=== PATIENT | female | born 1990 | race Caucasian/White ===

== ENCOUNTER 2018-09-13 05:07 | Inpatient (IN) | payer OTHER ==
[2018-09-05 11:31] VITALS: BMI 32.8
[~2018-09-13 05:07] MED LIST: MIDAZOLAM HCL 2 MG/2 ML SINGLE DOSE VIAL ONE; PROPOFOL 20 ML ONE; SUCCINYLCHOLINE CHLORIDE 200 MG/10 ML VIAL ONE; ceFAZolin SODIUM 1 GM VIAL ONE
[2018-09-13] MEDS ORDERED: BUPIVACAINE HCL/PF 0.5% (5MG/ML) 10 ML VIAL ONE (08:05)
[2018-09-13] MEDS ORDERED: ceFAZolin SODIUM 1 GM VIAL IVPB ONE ×2 (08:14→09:51)
--- NOTE | 2018-09-13 09:19 | HP ---
History & Physical Update - History History: No Change - Physical Physical: No Change - Assessment Assessment: No Change - Plan Plan: No Change
[2018-09-13] MEDS ORDERED: DESFLURANE GAS 240 ML BOTTLE IH ONE (09:21)
[2018-09-13] MEDS ORDERED: ACETAMINOPHEN INJECTION 100 ML IVPB ONE (09:22)
[2018-09-13] MEDS ORDERED: ROCURONIUM BROMIDE 50 MG/5 ML VIAL ONE ×2 (09:30→11:03)
[2018-09-13] MEDS ORDERED: DEXAMETHASONE SOD PHOSPHATE 4 MG/1 ML VIAL ONE (09:30)
[2018-09-13] MEDS ORDERED: ceFAZolin SODIUM 1 GM VIAL ONE ×2 (09:30→17:58)
[2018-09-13] MEDS ORDERED: NEOSTIGMINE METHYLSULFATE 0.5 MG/ML - 10 ML MDV ONE (09:30)
[2018-09-13] MEDS ORDERED: fentaNYL CITRATE 250 MCG/5 ML VIAL ONE (09:30)
[2018-09-13] MEDS ORDERED: MIDAZOLAM HCL 2 MG/2 ML SINGLE DOSE VIAL ONE ×2 (09:30)
[2018-09-13] MEDS ORDERED: GLYCOPYRROLATE 0.2 MG/1 ML VIAL ONE ×2 (09:30→11:57)
[2018-09-13] MEDS ORDERED: SUCCINYLCHOLINE CHLORIDE 200 MG/10 ML VIAL ONE (09:30)
[2018-09-13] MEDS ORDERED: PROPOFOL 20 ML ONE (09:32)
[2018-09-13] MEDS ORDERED: BUPIVACAINE HCL/PF 0.5% (5MG/ML) 10 ML VIAL IJ ONE ×2 (09:51→12:01)
[2018-09-13] MEDS ORDERED: IBUPROFEN 800 MG/8 ML IJ IVPB PRN ×2 (12:21→12:22)
[2018-09-13] MEDS ORDERED: oxyCODONE HCL 5 MG TABLET PO PRN (12:22)
[2018-09-13] MEDS ORDERED: MEPERIDINE HCL CARPU-JECT 50 MG/1 ML DISP.SYRIN IM PRN (12:25)
[2018-09-13] MEDS ORDERED: LACTATED RINGERS SOLUTION 1,000 ML/1,000 ML INFUS.BAG IV SCH (12:30)
--- NOTE | 2018-09-13 12:39 | OP ---
Operative Note - Note: Operative Date: 09/13/18 Pre-Operative Diagnosis: Right ovarian cyst Operation: Roboic Laparosocpic right ovarian cystectomy. 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
[2018-09-13] MEDS ORDERED: ONDANSETRON 4 MG/2 ML VIAL IVPUSH PRN ×2 (13:21)
[2018-09-13] MEDS ORDERED: PROMETHAZINE HCL 25 MG/1 ML VIAL IVPB PRN (13:21)
[2018-09-13] MEDS ORDERED: PROMETHAZINE HCL 25 MG/1 ML VIAL IVPUSH PRN (13:21)
[2018-09-13] MEDS ORDERED: LACTATED RINGERS SOLUTION 1,000 ML IV SCH (13:30)
[2018-09-13] MEDS ORDERED: HYDROmorphone *PCA* 10MG/50ML DISP.SYRIN PCA SCH (13:30)
--- NOTE | 2018-09-13 13:40 | OP ---
DATE OF OPERATION: 09/13/2018 PREOPERATIVE DIAGNOSES: Right ovarian cyst and pelvic pain. OPERATION: Robotic, laparoscopic right ovarian cystectomy and mini laparotomy. POSTOPERATIVE DIAGNOSES: Right neoplasia of the ovary. FINDINGS: A right 6-cm ovarian cyst. Frozen section done reported neoplasia with no high-grade cells. ANESTHESIA: General. ANESTHESIOLOGIST: Marshall Desai MD ESTIMATED BLOOD LOSS: 100 mL DESCRIPTION OF PROCEDURE: Patient was taken to the operating room, placed in dorsal lithotomy position, prepped and draped in usual sterile fashion. Timeout was performed in accordance with hospital regulation. Gibson catheter was inserted into the bladder. Attention was then drawn to the umbilicus where an 8-mm umbilical incision was made. Veress needle was inserted into the cavity. Approximately 3-4 L of CO2 was insufflated into the cavity. Veress needle was then removed, and an 8-mm trocar was then inserted. Laparoscope and camera attached. Visualization revealed a 6- to 7-cm right ovarian cyst. Trocars were placed. Two trocars were placed on the left, one in the upper abdomen and one parallel to the umbilical incision, an 8-mm incision parallel and then 5 mm in the upper abdomen. Trocars were inserted under direct visualization. Two trocars were also placed on the right under direct visualization parallel to the umbilical incision, 8 mm apart. Trocars were inserted without difficulty. AirSeal cannula was then activated, and steep Trendelenburg was then done. The da Memo robot was then side docked. Trocars were then inserted onto the da Memo robot. Instruments were then inserted. The [place] was inserted on the left, and a bipolar and EndoShears were inserted on the right side. Visualization of the left ovary was normal, and the right ovary was noted to have a 6- to 7-cm ovarian cyst. Cautery of the cyst wall was then done, and the ovarian capsule was then peeled back to visualize a more-solid ovarian tumor, noting that the tumor appeared to be not an endometrioma. An Endobag was then inserted in a 12-mm port in the upper abdomen. The ovary was then placed into the bag, and the cyst was then shelled out into the bag without spillage into the cavity. Cauterization of the ovarian was done for hemostasis, and the tumor was then removed in the bag, approximately 6-7 cm. Frozen section was sent off, and frozen section diagnosis reported an ovarian neoplasia with no high-grade cells. A mini laparotomy was then done due to the size of the neoplasia and inability to remove through 12mm port. A mini laparotomy was performed. Pfannenstiel skin incision was made. Cautery was then used to go through layers of abdominal wall to the level of the fascia. Fascia was cut in the midline. Cautery was then used to open the fascia in the following fashion. Muscles split in the midline and peritoneal cavity was then entered and the Endobag was then removed through the mini laparotomy incision. Irrigation of the abdomen was done. Hemostasis of the ovary was noted, and the peritoneum was then closed with continuous 0 Vicryl suture. Fascia was then closed in continuous 0 Vicryl suture in 2 parts. Subcutaneous was closed using interrupted sutures using 0 Vicryl suture, and skin was then closed using 3-0 Vicryl in subcuticular fashion. All trocars were then removed after da Memo had been undocked and placed away from the patient's bedside. All incisions were then closed using 3-0 Vicryl suture in subcuticular fashion. Wound was washed and dressed. Steri- Strips were placed. Marcaine was infiltrated into the incisions. Wound was washed and dressed. Patient had tolerated the procedure well, was taken to recovery room in stable condition. Nishi [id number] MTDD
[2018-09-13] MEDS ORDERED: DEXTROSE 5%-WATER - 50 ML IVPB ONE (17:58)
[2018-09-13] MEDS: CEFAZOLIN 1 GM in DEXTROSE 5%-WATER - 50 ML IVPB SCH (18:09)
[2018-09-13] MEDS: ACETAMINOPHEN 325 MG TABLET (FP) PO SCH ×2 (18:10→21:46)
[2018-09-13] MEDS ORDERED: HEPARIN NA (PORCINE) 5,000 UNITS/ML 1ML VIAL SQ SCH (22:00)
[2018-09-14] MEDS ORDERED: ceFAZolin SODIUM 1 GM VIAL ONE ×2 (01:31→09:59)
[2018-09-14] MEDS ORDERED: DEXTROSE 5%-WATER - 50 ML IVPB ONE ×2 (01:31→09:59)
[2018-09-14] MEDS: ACETAMINOPHEN 325 MG TABLET (FP) PO SCH ×4 (01:36→23:08)
[2018-09-14] MEDS: CEFAZOLIN 1 GM in DEXTROSE 5%-WATER - 50 ML IVPB SCH ×2 (01:36→10:03)
--- NOTE | 2018-09-14 02:12 | SURG ---
Surgery Delivery Truck Driver Note Delivery Truck Driver: Crystal Isbell PA-C Date of Service: 09/13/18 Diagnosis: Right ovarian cyst Procedure: Roboic Laparosocpic right ovarian cystectomy. Mini laparotomy I was present for the entirety of the operative procedure. For further detail, please refer to operative report. Visit type - Case Type Case Type: Scheduled - Emergency Emergency Visit: No - New patient This patient is new to me today: Yes Date on this admission: 09/13/18
[2018-09-14] MEDS ORDERED: oxyCODONE HCL 5 MG TABLET PO PRN ×3 (08:00→08:16)
[2018-09-14] MEDS ORDERED: PCA PUMP KEY 1 EACH EACH ONE (08:33)
[2018-09-14 09:06] LABS: BASO % 0.2 % (0-2.0); EOS % 0.4 % (0-4.5); HEMATOCRIT 34.8 % (32.4-45.2); HEMOGLOBIN 11.6 GM/dL (10.7-15.3); LYMPH % 28.2 % (8-40); MCH 30.2 pg (25.7-33.7); MCHC 33.3 g/dl (32.0-36.0); MEAN CELL VOLUME 90.7 fl (80-96); MONO % 8.3 % (3.8-10.2); NEUT % 62.9 % (42.8-82.8); PLATELET COUNT 203 K/MM3 (134-434); RBC 3.83 M/mm3 (3.60-5.2); RDW 13.6 % (11.6-15.6); WHITE BLOOD COUNT 9.3 K/mm3 (4.0-10.0)
[2018-09-14 09:08] LABS: ANION GAP 7 MMOL/L (8-16); BLOOD UREA NITROGEN 10 mg/dL (7-18); CALCIUM 8.5 mg/dL (8.5-10.1); CHLORIDE 104 mmol/L (98-107); CO2 27 mmol/L (21-32); CREATININE 0.7 mg/dL (0.55-1.3); GLUCOSE,RANDOM 78 mg/dL (74-106); POTASSIUM 3.8 mmol/L (3.5-5.1); SODIUM 138 mmol/L (136-145)
--- NOTE | 2018-09-14 09:49 | PN ---
Progress Note (short form) - Note Progress Note: POD#1 Pt states that she has been drinking water without any nausea or emesis. Pain flucutaing overnight. No flatus. Vital Signs Period Temp Pulse Resp BP Sys/Szymanski Pulse Ox Last 24 Hr 98.2 F-98.4 F 50-86 14-20 95-121/48-73 98-100 redman cath- 2200ml clear/yellow urine GEN: A&0x3, appears comfortable Cv: RRR Lungs: CTA b/l ABD: soft, non-distended, non-tender. Inc c/d/i LE: No calf tenderness or swelling noted. SCDs in place CBC, BMP /02/18 07:30 11//18 07:30 A/P; 28 yo female s/p robotic right ovarian cystectomy with mini laparotomy for mass removal Pt doing well surgically, had celars without difficulty. 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 Stephens
[2018-09-14] MEDS: ENOXAPARIN NA (PORCINE) 40 MG/0.4 ML DISP.SYRIN SQ SCH (10:03)
--- NOTE | 2018-09-14 10:43 | PN ---
Progress Note (short form) - Note Progress Note: Anesthesia postop note, POD#1 S/P robotic converted to open , ovarian cystectomy, under GETA. MANAGER CHINESE post op. Pat seen and examined. Comfortable, sitting in the chair. Tolerating po. VSS. Pain 3-4/10. No apparent post anesthesia complications, D/C MANAGER CHINESE. Signed off.
[2018-09-14] MEDS: oxyCODONE HCL 5 MG TABLET PO PRN (16:47)
[2018-09-14 23:13] VITALS: TEMP 98.6
[2018-09-15] MEDS: oxyCODONE HCL 5 MG TABLET PO PRN ×2 (02:45→11:14)
[2018-09-15] MEDS: ACETAMINOPHEN 325 MG TABLET (FP) PO SCH (06:46)
--- NOTE | 2018-09-15 08:21 | PN ---
Post Progress Note - Subjective Subjective: 28 yo status post seen and evaluated, doing well. Post Day: 2 Vital Signs: Vital Signs Temperature 98.6 F 09/14/18 22:00 Pulse Rate 54 L 09/14/18 22:00 Respiratory Rate 20 09/14/18 22:00 Blood Pressure 114/59 L 09/14/18 22:00 O2 Sat by Pulse Oximetry (%) 99 09/14/18 07:30 Breast Exam: Yes: Soft Uterus: Yes: Fundus Firm Incision: Yes: Dressing dry and intact Abdomen/GI: Yes: Abdomen soft, Tolerating PO Lochia: Yes: Rubra Lochia, amount: Small Extremities: Yes: Calves non-tender Activity: Ambulating - Labs Labs: CBC WBC 9.3 K/mm3 (4.0-10.0) 09/14/18 07:30 RBC 3.83 M/mm3 (3.60-5.2) 09/14/18 07:30 Hgb 11.6 GM/dL (10.7-15.3) 09/14/18 07:30 Hct 34.8 % (32.4-45.2) 09/14/18 07:30 MCV 90.7 fl (80-96) 09/14/18 07:30 MCH 30.2 pg (25.7-33.7) 09/14/18 07:30 MCHC 33.3 g/dl (32.0-36.0) 09/14/18 07:30 RDW 13.6 % (11.6-15.6) 09/14/18 07:30 Plt Count 203 K/MM3 (134-434) 09/14/18 07:30 MPV 9.0 fl (7.5-11.1) 09/14/18 07:30 Absolute Neuts (auto) 5.8 K/mm3 (1.5-8.0) 09/14/18 07:30 Neutrophils % 62.9 % (42.8-82.8) 09/14/18 07:30 Lymphocytes % 28.2 % (8-40) 09/14/18 07:30 Monocytes % 8.3 % (3.8-10.2) D 09/14/18 07:30 Eosinophils % 0.4 % (0-4.5) D 09/14/18 07:30 Basophils % 0.2 % (0-2.0) 09/14/18 07:30 Nucleated RBC % 0 % (0-0) 09/14/18 07:30 Problem List - Problems (1) Status post Code(s): Z98.891 - HISTORY OF UTERINE SCAR FROM PREVIOUS SURGERY Assessment/Plan Status post Ambulation Analgesia as needed Continue post op care
--- NOTE | 2018-09-15 08:42 | DS ---
"Physical Examination Vital Signs: Vital Signs Temperature 98.6 F 09/14/18 22:00 Pulse Rate 54 L 09/14/18 22:00 Respiratory Rate 20 09/14/18 22:00 Blood Pressure 114/59 L 09/14/18 22:00 O2 Sat by Pulse Oximetry (%) 99 09/14/18 07:30 Constitutional: Yes: Well Nourished Eyes: Yes: Conjunctiva Clear HENT: Yes: Atraumatic Neck: Yes: Supple Cardiovascular: Yes: Regular Rate and Rhythm Respiratory: Yes: Regular Gastrointestinal: Yes: Normal Bowel Sounds Musculoskeletal: Yes: WNL Extremities: Yes: WNL Wound/Incision: Yes: Clean/Dry, Well Approximated Neurological: Yes: Alert, Oriented Psychiatric: Yes: Alert, Oriented Labs: CBC, BMP 09/14/18 07:30 09/14/18 07:30 Discharge Summary Reason For Visit: OVARIAN CYST Current Active Problems Status post (Acute) Procedures: Principal: Robotic ovarian cystectomy / Mini Laparotomy Hospital Course: Patient admitted for post op care after Mini Laparotomy. She received pain medications but no blood transfusion required. Condition: Good - Instructions Diet, Activity, Other Instructions: Dr. 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 You may walk unlimited shay of and climb stairs. You may resume driving the car when you feel safe and comfortable behind the wheel. No sexual activity as instructed by Dr. Stephens. Wound care If you have a bandage, leave it on, and keep dry for 48-72 hours. After that time discard the outer bandage. If they are tapes on the skin under the out of bandage leave them in place. They will peel off in the next 7 to 10 days. Do Not Peel them off. You may shower the day after surgery. If there are tapes present on the skin, you may shower over them. Diet There are no dietary restrictions. Eat healthy, high-fiber foods. Drink 6 to 8 glasses of liquid each day. This will assist in keeping your bowels are regular. Pain management You may take Tylenol or acetaminophen or Ibuprofen (for example, Motrin, Advil etc.) from my pain prescription medication is ordered should be taken as prescribed for moderate to severe pain. Call Dr. Stephens for any of the following: Severe pain not relieved by medication Fever of 101 or higher Excessive bleeding or drainage on dressing Inability to urinate Call the office at [phone] for an appointment in seven days. This report was requested by: Crystal Isbell | Reference #: [id number] Disposition: HOME - Home Medications Comprehensive Discharge Medication List: Ambulatory Orders Oxycodone HCl 5 mg PO Q6H PRN #20 tablet MDD 6 09/13/18"
[2018-09-15 09:18] VITALS: BP 111/61; PULSE 61
[2018-09-15] MEDS: ENOXAPARIN NA (PORCINE) 40 MG/0.4 ML DISP.SYRIN SQ SCH (10:35)
--- NOTE | 2018-09-18 16:16 | PATH ---
Surgical Pathology Report Patient Name: RAVINDER ZHENG Med. Rec. 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 Specimen(s) Received A: RIGHT OVARIAN TISSUE B: RIGHT OVARIAN CYST Clinical History Ovary cyst Intraoperative Consult Diagnosis Ovarian cyst, right, frozen section: Ovarian neoplasm, defer to permanent sections. Dr. Gaxiola, 09/13/18. Final Diagnosis A. 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 SEE COMMENT. B. 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 SIZE: 5 X 3 X 3 CM. SEE COMMENT. Comment: Histologic sections show sheets, trabecular aggregates, and nests of polygonal cells with nuclear grooves and distinct nucleoli. Focal microfollicular areas with Call-Exner bodies are present. Fibro-thecoma like areas are noted. Reticulin stain highlights nests and clusters of neoplastic cells. Immunohistochemical stains performed at [place], [place] ([id number]) and interpreted at [facility] show the tumor is positive for Inhibin and calretinin, focally positive for AE1/3 and CD10; while negative for PACO. Overall histomorphology and immunophenotype support the diagnosis. Case seen interdepartmentally. Findings discussed with Dr. Stephens. Electronically Signed Martita Boyd M.D. Gross Description A. Received fresh for immediate intraoperative consultation labeled "right ovarian tissue" is an irregular fragment of steward soft tissue measuring 0.5 x 0.3 x 0.3 cm. Touch preparation is performed. Entire specimen is submitted for frozen section analysis in one cassette: FS1. B. Received fresh labeled "right ovarian cyst" is an irregular doughy steward-yellow soft tissue mass measuring 5 x 3 x 3 cm. The surface of the mass is disrupted, variegated, and focally hemorrhagic. Cut section is steward fairly homogenous with areas of fibrosis. Pole Inspector sections are submitted in 6 cassettes (6- hemorrhagic area). [facility]/09/13/2018 [facility]/09/13/2018
== END 2018-09-15 14:30 | disposition home or self-care (01) | DRG 513 ==
LOC: JASUSAT 05:07 → J3W 16:00 → JASUSAT 16:01
PROVIDERS: ADMIT Obstetrics & Gynecology; ATTEND Obstetrics & Gynecology
PROC: 0UB04ZZ Excision of Right Ovary, Percutaneous Endoscopic Approach (ICD-10-PCS; principal; 2018-09-13 08:30)
DX: N83.291 Other ovarian cyst, right side (principal); D49.59 Neoplasm of unspecified behavior of other genitourinary organ; Z53.31 Laparoscopic surgical procedure converted to open procedure
CPT/HCPCS: 36415; 74018-TC-FY; 80048; 84702; 85025; 86304; 86850; 86900; 86901; 88305-TC; 88313-TC; 88331-TC; 94760; J0131

== ENCOUNTER 2021-03-01 07:34 | Emergency (ER) | payer OTHER ==
[2021-03-01 08:30] VITALS: BP 108/72; PULSE 59; TEMP 98.1; BMI 29.2
[2021-03-01] MEDS ORDERED: ACETAMINOPHEN 500 MG TABLET (FP) ONE (09:01)
[2021-03-01] MEDS ORDERED: ONDANSETRON *ODT* 4 MG TABLET ONE (09:01)
[2021-03-01] MEDS ORDERED: FLUCONAZOLE 150 MG TABLET PO ONE ×2 (09:04→09:08)
[2021-03-01] MEDS ORDERED: ACETAMINOPHEN 500 MG TABLET (FP) PO ONE (09:07)
[2021-03-01] MEDS ORDERED: ONDANSETRON *ODT* 4 MG TABLET SL ONE (09:07)
[2021-03-01 10:19] LABS: URINE APPEARANCE CLEAR; URINE BILIRUBIN NEGATIVE (NEGATIVE); URINE COLOR YELLOW; URINE GLUCOSE (UA) NEGATIVE (NEGATIVE); URINE KETONE NEGATIVE (NEGATIVE); URINE LEUK ESTERASE NEGATIVE (NEGATIVE); URINE NITRITE NEGATIVE (NEGATIVE); URINE PROTEIN NEGATIVE (NEGATIVE); URINE UROBILINOGEN 0.2 mg/dL (0.2-1.0)
[2021-03-01 10:20] LABS: HCG,QUALITATIVE URINE Negative
== END 2021-03-01 12:34 | disposition home or self-care (01) ==
LOC: JER 07:34
DX: R10.32 Left lower quadrant pain (principal); N83.292 Other ovarian cyst, left side
CPT/HCPCS: 76830-TC; 81003; 84703; 87086; 99284-25; Q0162

== ENCOUNTER 2023-03-07 11:06 | Emergency (ER) | payer OTHER ==
[2023-03-07 11:13] VITALS: BP 107/64; PULSE 68; RESP 20; TEMP 98.6; BMI 27.4
[2023-03-07 12:12] LABS: HEMATOCRIT 30.6 % (32.4-45.2); HEMOGLOBIN 10.2 GM/dL (10.7-15.3); MCH 25.2 pg (25.7-33.7); MCHC 33.2 g/dl (32.0-36.0); MEAN CELL VOLUME 75.9 fl (80-96); MEAN PLT VOLUME 7.8 fl (7.5-11.1); PH,URINE 5.5 (5.0-8.0); PLATELET COUNT 283 10^3/uL (134-434); RBC 4.03 M/mm3 (3.60-5.2); RDW 19.2 % (11.6-15.6); URINE APPEARANCE CLEAR; URINE BILIRUBIN NEGATIVE (NEGATIVE); URINE COLOR YELLOW; URINE GLUCOSE (UA) NEGATIVE (NEGATIVE); URINE KETONE NEGATIVE (NEGATIVE); URINE LEUK ESTERASE NEGATIVE (NEGATIVE); URINE NITRITE NEGATIVE (NEGATIVE); URINE PROTEIN NEGATIVE (NEGATIVE); URINE UROBILINOGEN 0.2 mg/dL (0.2-1.0); WHITE BLOOD COUNT 5.8 K/mm3 (4.0-10.0)
[2023-03-07 12:39] LABS: CALCIUM 8.7 mg/dL (8.5-10.1)
[2023-03-07 12:40] LABS: ALBUMIN 3.6 g/dl (3.4-5.0); BLOOD UREA NITROGEN 8.3 mg/dL (7-18)
[2023-03-07 12:43] LABS: CREATININE 0.6 mg/dL (0.55-1.3)
[2023-03-07 12:45] LABS: BILIRUBIN,TOTAL 0.3 mg/dL (0.2-1); TOT PROT 6.9 g/dl (6.4-8.2)
== END 2023-03-07 14:36 | disposition home or self-care (01) ==
LOC: JER 11:06
DX: O20.9 Hemorrhage in early pregnancy, unspecified (principal); Z3A.01 Less than 8 weeks gestation of pregnancy
CPT/HCPCS: 36415; 76817-TC; 80053; 81003; 84702; 85027; 86850; 86900; 86901; 87086; 99284-25